=== PATIENT | female | born 1995 ===

== ENCOUNTER 2018-01-28 02:18 | Emergency (ER) | payer SELFPAY ==
[2018-01-28 02:30] VITALS: BP 132/87; RESP 16; TEMP 98; O2SAT 100
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
[2018-01-28 03:52] VITALS: PULSE 85
== END 2018-01-28 03:50 | disposition home or self-care (01) ==
LOC: H.ER 02:18
DX: F43.20 Adjustment disorder, unspecified (principal)